=== PATIENT | male | born 1990 | race Caucasian/White ===

== ENCOUNTER → 2018-02-12 14:20 | Emergency (ER) | payer OTHER ==
[~2018-02-12 14:20] MED LIST: cloNIDine TAB* 0.1 MG PO ONE
[2018-02-12 15:38] LABS: ABS Basophils 0 10^3/ul (0-0.2); ABS Eosinophils 0.1 10^3/ul (0-0.6); ABS Lymphocytes 1.8 10^3/ul (1.0-4.8); ABS Monocytes 0.6 10^3/ul (0-0.8); ABS Neutrophils 5.5 10^3/ul (1.5-7.7); ABS Nucleated RBC 0 10^3/ul; Hematocrit 48 % (42-52); Hemoglobin 16.2 g/dl (14.0-18.0); Lymphocyte % 22.4 % (25-47); Mean Corpuscular HGB Conc 34 g/dl (31-36); Mean Corpuscular Hemoglobin 29 pg (27-31); Mean Corpuscular Volume 86 fL (80-94); Mean Platelet Volume 8.6 fL (7.4-10.4); Nucleated Red Blood Cells % 0; Platelet Count 252 10^3/ul (150-450); Red Blood Count 5.65 10^6/ul (4.00-5.40); Red Cell Distribution Width 13 % (10.5-15)
[2018-02-12 16:01] LABS: EGFR Non-African American 95.8 (>60)
--- NOTE | 2018-02-12 20:16 | ED ---
Dizziness - HPI Summary HPI Summary: This patient is a 27 year old M presenting to [facility] accompanied by girlfriend with a chief complaint of intermittent episodes (lasting approximately 30 minutes) of dizziness (lightheadedness) that began yesterday. The patient rates the pain 0/10 in severity. Symptoms aggravated by nothing. Symptoms alleviated by nothing. Patient reports tonsils feel huge, L arm feeling heavy ( resolved after a few minutes), fatigue, and feeling fuzzy. Patient denies nausea, vomiting, diarrhea, SOB, CP, and sore throat. - History Of Current Complaint Chief Complaint: EDDizziness Stated Complaint: SOB/FEELING FOGGY Time Seen by Provider: 02/12/18 20:04 Hx Obtained From: Patient Onset/Duration: Still Present Timing: Intermittent Episode Lasting - 30 minutes Severity Initially: Mild Severity Currently: Mild Character: Lightheaded Aggravating Factor(s): Nothing Alleviating Factor(s): Nothing Associated Signs And Symptoms: Positive: Other: - Positive tonsils feel huge, L arm feeling heavy (resolved after a few minutes), fatigue, and feeling fuzzy. Negative nausea, vomiting, diarrhea, SOB, CP, and sore throat. - Allergies/Home Medications Allergies/Adverse Reactions: Allergies Allergy/AdvReac Type Severity Reaction Status Date / Time No Known Allergies Allergy Verified 02/12/18 14:30 Home Medications: Home Medications Lisinopril TAB* [Prinivil TAB*] 20 mg PO DAILY 02/12/18 [History Confirmed 02/12] PMH/Surg Hx/FS Hx/Imm Hx Previously Healthy: No Cardiovascular History: Reports: Hx Hypertension Opthamlomology History: Denies: Hx Legally Blind EENT History: Denies: Hx Deafness Infectious Disease History: No Infectious Disease History: Denies: Traveled Outside the [place] in Last 30 Days - Family History Known Family History: Positive: Cardiac Disease - Grandfather [place] at age 55, Diabetes - Social History Occupation: Employed Full-time Lives: Alone Alcohol Use: Occasionally Hx Substance Use: No Substance Use Type: Reports: None Hx Tobacco Use: No Smoking Status (MU): Never Smoked Tobacco Review of Systems Positive: Fatigue Positive: Other - Positive "tonsils feel huge". Negative: Sore Throat Negative: Chest Pain Negative: Shortness Of Breath Negative: Diarrhea, Nausea Neurological: Other - Positive dizziness, L arm feeling "heavy", and feeling "fuzzy" All Other Systems Reviewed And Are Negative: Yes Physical Exam - Summary Physical Exam Summary: VITAL SIGNS: Reviewed. GENERAL: Patient is a well-developed and nourished male who is lying comfortable in the stretcher. Patient is not in any acute respiratory distress. HEAD AND FACE: No signs of trauma. No ecchymosis, hematomas or skull depressions. No sinus tenderness. EYES: PERRLA, EOMI x 2, No injected conjunctiva, no nystagmus. EARS: Hearing grossly intact. Ear canals and tympanic membranes are within normal limits. MOUTH: Oropharynx within normal limits. NECK: Supple, trachea is midline, no adenopathy, no JVD, no carotid bruit, no c- spine tenderness, neck with full ROM. CHEST: Symmetric, no tenderness at palpation LUNGS: Clear to auscultation bilaterally. No wheezing or crackles. CVS: Regular rate and rhythm, S1 and S2 present, no murmurs or gallops appreciated. ABDOMEN: Soft, non-tender. No signs of distention. No rebound no guarding, and no masses palpated. Bowel sounds are normal. EXTREMITIES: FROM in all major joints, no edema, no cyanosis or clubbing. NEURO: Alert and oriented x 3. No acute neurological deficits. Speech is normal and follows commands. SKIN: Dry and warm Triage Information Reviewed: Yes Vital Signs On Initial Exam: Initial Vitals Temp Pulse Resp BP Pulse Ox 98.1 F 88 18 160/80 98 02/12/18 14:26 02/12/18 14:26 02/12/18 14:26 02/12/18 14:26 02/12/18 14:26 Vital Signs Reviewed: Yes - Nirmal Coma Scale Best Eye Response: 4 - Spontaneous Best Motor Response: 6 - Obeys Commands Best Verbal Response: 5 - Oriented Coma Scale Total: 15 Diagnostics - Vital Signs Vital Signs Temp Pulse Resp BP Pulse Ox 02/12/18 20:09 84 151/108 02/12/18 19:01 99.0 F 74 16 132/68 98 02/12/18 16:30 98.7 F 66 14 138/71 99 02/12/18 14:26 98.1 F 88 18 160/80 98 - Laboratory Lab Results: Lab Results 02/12/18 02/12/18 Range/Units 15:30 15:30 WBC 8.0 (3.5-10.8) 10^3/ul RBC 5.65 H (4.00-5.40) 10^6/ul Hgb 16.2 (14.0-18.0) g/dl Hct 48 (42-52) % MCV 86 (80-94) fL MCH 29 (27-31) pg MCHC 34 (31-36) g/dl RDW 13 (10.5-15) % Plt Count 252 (150-450) 10^3/ul MPV 8.6 (7.4-10.4) fL Neut % (Auto) 68.4 (38-83) % Lymph % (Auto) 22.4 L (25-47) % [place] % (Auto) 7.7 H (0-7) % Eos % (Auto) 1.0 (0-6) % Baso % (Auto) 0.5 (0-2) % Absolute Neuts (auto) 5.5 (1.5-7.7) 10^3/ul Absolute Lymphs (auto) 1.8 (1.0-4.8) 10^3/ul Absolute Monos (auto) 0.6 (0-0.8) 10^3/ul Absolute Eos (auto) 0.1 (0-0.6) 10^3/ul Absolute Basos (auto) 0 (0-0.2) 10^3/ul Absolute Nucleated RBC 0 10^3/ul Nucleated RBC % 0 Sodium 138 (135-145) mmol/L Potassium 4.6 (3.5-5.0) mmol/L Chloride 105 (101-111) mmol/L Carbon Dioxide 27 (22-32) mmol/L Anion Gap 6 (2-11) mmol/L BUN 14 (6-24) mg/dL Creatinine 0.95 (0.67-1.17) mg/dL Est GFR ( Amer) 116.0 (>60) Est GFR (Non-Af Amer) 95.8 (>60) BUN/Creatinine Ratio 14.7 (8-20) Glucose 111 H (70-100) mg/dL Calcium 9.9 (8.6-10.3) mg/dL Total Bilirubin 1.20 H (0.2-1.0) mg/dL AST 21 (13-39) U/L ALT 23 (7-52) U/L Alkaline Phosphatase 65 (34-104) U/L Troponin I 0.00 (<0.04) ng/mL Total Protein 8.1 (6.4-8.9) g/dL Albumin 4.7 (3.2-5.2) g/dL Globulin 3.4 (2-4) g/dL Albumin/Globulin Ratio 1.4 (1-3) Result Diagrams: 02/12/18 15:30 02/12/18 15:30 Lab Statement: Any lab studies that have been ordered have been reviewed, and results considered in the medical decision making process. - CT Brain CT CT Interpretation Completed By: Radiologist Summary of CT Findings: Brain CT reveals, per radiologist, normal head CT. ED physician has reviewed this radiology report. - EKG 1536 Cardiac Rate: NL EKG Rhythm: Sinus Rhythm - [address] Segment: Normal Ectopy: None Summary of EKG Findings: An EKG taken at 1536 reveals nml sinus at 71 bpm with nml axis, nml intervals, and no ischemic changes. Re-Evaluation - Re-Evaluation First Eval Re-Evaluation Time: 21:05 Change: Improved Comment: Patient reports he feels much better now that his blood pressure has improved. Discussed results and plan of care with the patient. Dizzy Course/Dx - Course Course Of Treatment: This patient is a 27 year old M presenting to [facility] accompanied by girlfriend with a chief complaint of intermittent episodes ( lasting approximately 30 minutes) of dizziness (lightheadedness) that began yesterday. Physical Exam Findings: Nml. An EKG taken at 1536 reveals nml sinus at 71 bpm with nml axis, nml intervals, and no ischemic changes. Brain CT reveals, per radiologist, normal head CT. Bloodwork obtained. In the ED course the patient was given Catapres. Patient feels better with improved blood pressure. I will increase his prescription from 20 mg daily to 30 mg daily. Patient has a full bottle of 20mg pills, so I will write a script for 10 mg. Patient will be discharged with prescription for 10mg Lisinopril and follow up from PCP. The patient is agreeable with this plan. - Diagnoses Provider Diagnoses: Hypertension Discharge - Sign-Out/Discharge Documenting (check all that apply): Patient Departure - Discharge home - Discharge Plan Condition: Stable Disposition: HOME Patient Education Materials: Hypertension (ED) Referrals: Kasia Simon MD [Primary Care Provider] - 3 Days Additional Instructions: RETURN TO THE EMERGENCY DEPARTMENT FOR NEW OR WORSENING SYMPTOMS - Attestation Statements Document Initiated by Scribe: Yes Documenting Scribe: Cathy Farias Provider For Whom Scribe is Documenting (Include Credential): Dr. Annemarie Allen MD Scribe Attestation: ICathy, scribed for Dr. Annemarie Allen MD on 02/12/18 at 2109.
[2018-02-12 21:44] VITALS: BP 132/84
== END | disposition home or self-care (01) ==
LOC: ED 14:20
DX: I10 Essential (primary) hypertension (principal); R53.83 Other fatigue; Z82.49 Family history of ischemic heart disease and other diseases of the circulatory system; Z83.3 Family history of diabetes mellitus
CPT/HCPCS: 36415; 70450; 80053; 84484; 85025; 93005; 99283; A9270-GY